=== PATIENT | female | born 1970 | race Caucasian/White ===

== ENCOUNTER 2021-03-20 10:14 | Emergency (ER) | payer SELFPAY ==
[~2021-03-20] VITALS: Ht 165.1 cm; Wt 53.5 kg
--- NOTE | 2021-03-20 10:46 | NUR ---
Covid and Strept swabs done and sent to lab
[2021-03-20] MEDS ORDERED: ACETAMINOPHEN ES 500 MG TABLET ONE (10:59)
[2021-03-20] MEDS ORDERED: IBUPROFEN 600 MG TABLET ONE (10:59)
[2021-03-20] MEDS ORDERED: ACETAMINOPHEN ES 500 MG TABLET PO ONE (11:00)
[2021-03-20] MEDS ORDERED: IBUPROFEN 600 MG TABLET PO ONE (11:00)
[2021-03-20 12:22] VITALS: BP 118/71
--- NOTE | 2021-03-20 12:22 | NUR ---
Patient discharged to home in stable condition. Written and verbal after care instructions given. Patient verbalizes understanding of instruction.
== END 2021-03-20 12:22 | disposition home or self-care (01) ==
LOC: ER 10:23
DX: U07.1 COVID-19 (principal); Z87.09 Personal history of other diseases of the respiratory system
CPT/HCPCS: 71045; 87070; 87426; 87880; 99284; C9803; 86403-TC